=== PATIENT | female | born 1965 | race Caucasian/White ===

== ENCOUNTER 2017-10-28 13:12 | Emergency (ER) | payer SELFPAY ==
[~2017-10-28] VITALS: Ht 165.1 cm; Wt 82.7 kg
[~2017-10-28 13:12] MED LIST: CIPR500T2 PO; Z.0.NO CURRENT MEDS
[2017-10-28 13:13] VITALS: BP 157/84; PULSE 96; RESP 18; TEMP 97.1; O2SAT 96
[2017-10-28] MEDS ORDERED: GUAI1SOL3 PO (13:50)
[2017-10-28] MEDS ORDERED: AZIT250T3 PO (13:50)
[2017-10-28] MEDS ORDERED: BENZ100 PO (13:50)
--- NOTE | 2017-10-28 13:58 | PD ---
HPI Chief Complaint: Cold / Flu Symptoms Time Seen by Provider: 13:37 Travel History International Travel<30 days: No Contact w/Intl Traveler<30days: No Traveled to known affect area: No History of Present Illness HPI 51-year-old female that presents to the ED for evaluation of cold-like symptoms. Patient has had symptoms for about 3 days now. Cough which is the more significant symptoms. Per patient he has not coughed that caused her to vomit. She's been taking tussionex with minimal relief. She states that her mother was recently admitted to the hospital and was in the ICU for about 3 weeks and she states that she had a lung infection. Unsure as to what it was but does appear to sound like she had bad pneumonia. Patient herself denies any history of COPD or asthma. She has a history of SVT in the past. States that the cough has worsened and his nonproductive. She denies any recent travel. States having some fevers chills and sweats but not anymore. Now main symptoms are cough and congestion. Has not seen anybody for this. Allergy to sulfa. No smoking history. Denies any chest other than With cough. No abdominal pain. No nausea or vomiting. PFSH Past Medical History Arthritis: Yes (DEGEN DISC) Heart Rhythm Problems: Yes (HX OF SVT) Diminished Hearing: No Musculoskeletal: Yes (DEGENERATIVE DISC DISEASE) Immunizations Current: No ?: Not Past Surgical History Cardiac Surgery: Yes (ABLATION) Section: Yes (X2) Hysterectomy: Yes Tonsillectomy: Yes Social History Alcohol Use: No Tobacco Use: No Substance Use: No Allergies-Medications (Allergen,Severity, Reaction): Coded Allergies: Sulfa (Sulfonamide Antibiotics) (Unverified Allergy, Intermediate, Rash, ) Reported Meds & Prescriptions Reported Meds & Active Scripts Active Tessalon Perles (Benzonatate) 100 Mg Cap 100 Mg PO TID PRN Azithromycin 250 Mg Tab 250 Mg PO DIRECTED Take 2 tabs (500 mg) on day 1 then 1 tab daily x 4 days. Codeine/Guaifenesin 100-10 mg/5Ml (Guaifenesin-Codeine) 10 Mg-100 Mg/5 Ml Prerna 5 Mg PO Q6HR PRN 7 Days Review of Systems Except as stated in HPI: all other systems reviewed are Neg Physical Exam Narrative GENERAL: Well-nourished, well-developed patient in no apparent distress. SKIN: Warm and dry. HEAD: Atraumatic. Normocephalic. EYES: Pupils equal and round reactive to light and accommodation. No scleral icterus. No injection or drainage. ENT: No nasal bleeding or discharge. Mucous membranes pink and moist. TMs are clear with no sign of infection or perforation. No mastoid tenderness. Ear canals are intact bilaterally. No lymphadenopathy. Nostril mucosa is red and moist with clear mucus noted. No sinus tenderness to palpation noted. Tonsils are not enlarged or swollen. No ulvua Deviation. Tongue is midline. NECK: Trachea midline. No JVD. No meningeal signs noted CARDIOVASCULAR: Regular rate and rhythm. RESPIRATORY: No accessory muscle use. Clear to auscultation. Breath sounds equal bilaterally. GASTROINTESTINAL: Abdomen soft, non-tender, nondistended. Hepatic and splenic margins not palpable. MUSCULOSKELETAL: Extremities without clubbing, cyanosis, or edema. No obvious deformities. NEUROLOGICAL: Awake and alert. No obvious cranial nerve deficits. Motor grossly within normal limits. Five out of 5 muscle strength in the arms and legs. Normal speech. PSYCHIATRIC: Appropriate mood and affect; insight and judgment normal. Data Data Last Documented VS Vital Signs Date Time Temp Pulse Resp B/P (MAP) Pulse Ox O2 Delivery O2 Flow Rate FiO2 10/28/17 13:13 97.1 96 18 157/84 (108) 96 Room Air Orders Orders Chest, Single Ap (10/28/17 ) [facility] Medical Decision Making Medical Screen Exam Complete: Yes Emergency Medical Condition: Yes Medical Record Reviewed: Yes Interpretation(s) CXR negative for acute disease Differential Diagnosis Bronchitis versus pneumonia versus URI versus sinusitis Narrative Course 51-year-old female that presents to the ED for evaluation of cold-like symptoms. Patient was properly examined and was found to have signs and symptoms consistent with appears to be likely bronchitis versus pneumonia. We' ll do chest x-ray to rule out pneumonia as patient was exposed to mother with "lung infection". Chest x-ray showed no sign of acute disease. Patient was reassured. Likely bronchitis. Will treat with azithromycin, codeine cough syrup as well as Tessalon Perles. Told to use in addition to Mucinex and over- the-counter remedies. Follow with PCP. See ED for worsening symptoms. Diagnosis Primary Impression: Bronchitis Patient Instructions: General Instructions Additional Instructions: Motrin and Tylenol for pain and fever. You can use [id number] antihistamine as well as well as Mucinex as needed for runny nose and congestion. Cough drops for cough as needed. Drink plenty of fluids. Follow-up with PCP. See ED for worsening symptoms. Med/Other Pt SpecificInfo: Prescription(s) given Scripts Benzonatate (Tessalon Perles) 100 Mg Cap 100 MG PO TID Y for COUGH, #20 CAP 0 Refills Prov: Hasmukh Russell MD 10/28/17 Azithromycin (Azithromycin) 250 Mg Tab 250 MG PO DIRECTED for Infection, #6 TAB 0 Refills Take 2 tabs (500 mg) on day 1 then 1 tab daily x 4 days. Prov: Hasmukh Russell MD 10/28/17 Guaifenesin-Codeine (Codeine/Guaifenesin 100-10 mg/5Ml) 10 Mg-100 Mg/5 Ml Prerna 5 MG PO Q6HR Y for COUGH for 7 Days, 0 Refills Prov: Hasmukh Russell MD 10/28/17 Disposition: 01 DISCHARGE HOME Condition: Stable Karl Parra Oct 28, 2017 13:58
--- NOTE | 2017-10-28 15:27 | RADRPT ---
EXAM DATE/TIME: 10/28/2017 14:21 [facility] COMPARISON: CHEST PA & LAT, October 13, 2010, 13:44. INDICATIONS : Coughing for several days, chest discomfort, short of breath MEDICAL HISTORY : Cerebrovascular disease. SURGICAL HISTORY : cardiac ablation for SVT, PVC ENCOUNTER: Initial ACUITY: 3 days PAIN SCORE: Non-responsive. LOCATION: Bilateral chest FINDINGS: PA and lateral views of the chest demonstrate the lungs to be symmetrically aerated without evidence of mass, infiltrate or effusion. The cardiomediastinal contours are unremarkable. Osseous structure s are intact. CONCLUSION: 1. No acute cardiopulmonary disease. Yanick Torres MD on October 28, 2017 at 15:24 Board Certified Radiologist. This report was verified electronically.
== END 2017-10-28 14:54 | disposition home or self-care (01) ==
LOC: NEPK 13:12
DX: J40 Bronchitis, not specified as acute or chronic (principal)
CPT/HCPCS: 71046; 99283

== ENCOUNTER 2017-12-01 14:33 | Emergency (ER) | payer SELFPAY ==
[~2017-12-01] VITALS: Ht 165.1 cm; Wt 81.8 kg
[~2017-12-01 14:33] MED LIST changes: +AZIT250T3 PO; +BENZ100 PO; -CIPR500T2 PO; +GUAI1SOL3 PO; -Z.0.NO CURRENT MEDS
[2017-12-01 14:54] VITALS: BP 150/74; PULSE 87; RESP 18; TEMP 98.7; O2SAT 95
--- NOTE | 2017-12-01 15:18 | RADRPT ---
EXAM DATE/TIME: 12/01/2017 15:06 [facility] COMPARISON: No previous studies available for comparison. INDICATIONS : Fall. Impact to posterior hand and wrist. MEDICAL HISTORY : Cerebrovascular disease. SURGICAL HISTORY : Cardiac ablation for SVT, PVC. ENCOUNTER: Initial ACUITY: 1 day PAIN SCORE: 6/10 LOCATION: Right posterior hand FINDINGS: There is an oblique fracture through the base of the fifth metacarpal. 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 Bone density is decreased. CONCLUSION: Nondisplaced base of fifth metacarpal fracture. Sung Lewis MD on December 01, 2017 at 15:15 Board Certified Radiologist. This report was verified electronically.
--- NOTE | 2017-12-01 15:18 | RADRPT ---
EXAM DATE/TIME: 12/01/2017 15:06 [facility] COMPARISON: No previous studies available for comparison. INDICATIONS : Fall. Impact to posterior hand and wrist. MEDICAL HISTORY : Cerebrovascular disease. SURGICAL HISTORY : Cardiac ablation for SVT, PVC. ENCOUNTER: Initial ACUITY: 1 day PAIN SCORE: 6/10 LOCATION: Right posterior wrist FINDINGS: There is a nondisplaced fracture through the base of the fifth metacarpal. No other fractures are see n. Bone density is decreased. CONCLUSION: Fifth metacarpal fracture. Sung Lewsi MD on December 01, 2017 at 15:16 Board Certified Radiologist. This report was verified electronically.
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
[2017-12-01] MEDS ORDERED: TRAM50 PO (16:42)
== END 2017-12-01 17:48 | disposition home or self-care (01) ==
LOC: NEPK 14:33
DX: S62.346A Nondisplaced fracture of base of fifth metacarpal bone, right hand, initial encounter for closed fracture (principal); V28.2XXA Unspecified motorcycle rider injured in noncollision transport accident in nontraffic accident, initial encounter; M19.90 Unspecified osteoarthritis, unspecified site
CPT/HCPCS: 29125; 73110; 73130